=== PATIENT | female | born 1945 | race Caucasian/White ===

== ENCOUNTER 2019-02-17 17:57 | Emergency (ER) | payer MEDICARE ==
[~2019-02-17] VITALS: Ht 162.6 cm; Wt 90.9 kg
[~2019-02-17 17:57] MED LIST: LIDOcaine 1% w/EPI 1:100,000 30ml vial (MDV) ONE; NALT50TA PO; RIVA20TA PO
[2019-02-17 18:12] VITALS: BP 126/78
[2019-02-17] MEDS ORDERED: CEPH500C2 PO (22:05)
[2019-02-17] MEDS ORDERED: SULF1TAB49 PO (22:05)
== END 2019-02-17 22:18 | disposition home or self-care (01) ==
LOC: ER 17:57
DX: N76.4 Abscess of vulva (principal); Z86.718 Personal history of other venous thrombosis and embolism; Z90.710 Acquired absence of both cervix and uterus; Z90.89 Acquired absence of other organs; Z88.5 Allergy status to narcotic agent; Z79.899 Other long term (current) drug therapy
CPT/HCPCS: 56405; 99284; J3490

== ENCOUNTER 2023-03-31 02:23 | Inpatient (IN) | payer MEDICARE ==
[2023-03-31] VITALS (7 sets, daily range): BP systolic 116–168; BP diastolic 51–92; PULSE 60–100; RESP 16–20; TEMP 96.4–97.5; O2SAT 93–97
[~2023-03-31] VITALS: Ht 162.6 cm; Wt 90.9 kg
[~2023-03-31 02:23] MED LIST changes: -LIDOcaine 1% w/EPI 1:100,000 30ml vial (MDV) ONE
[2023-03-31] MEDS ORDERED: LORazepam 2 mg/ml vial IV ONE (03:15)
[2023-03-31] MEDS ORDERED: normal saline 1000ml 1,000 ML IV ONE (03:15)
[2023-03-31 03:19] LABS: HEMOGLOBIN 14.9 g/dl (12.0-16.0); MEAN PLATELET VOLUME 8.5 FL (7.4-10.4); RED CELL DISTRIBUTION WIDTH 12.9 % (11.5-14.5)
[2023-03-31 03:21] LABS: MEAN CORPUSCULAR HEMOGLOBIN 32.9 PG (27.0-31.0); MEAN CORPUSCULAR HGB CONC 33.9 g/dL (33.0-36.5); PLATELET COUNT 173 X10'3 (140-440); RED BLOOD COUNT 4.53 X10'6 (4.20-5.60); WHITE BLOOD COUNT 11.2 X10'3 (4.5-11.0)
[2023-03-31 03:34] LABS: ALANINE AMINOTRANSFERASE 58 U/L (12-78); ALBUMIN 3.4 G/DL (3.4-5.0); ALBUMIN/GLOBULIN RATIO 1.2 (1.1-1.5); ALKALINE PHOSPHATASE 37 IU/L (46-116); ANION GAP 12 (8-16); ASPARTATE AMINO TRANSFERASE 45 U/L (10-37); BILIRUBIN,TOTAL 0.8 MG/DL (0.1-1.0); BLOOD UREA NITROGEN 11 MG/DL (7-18); CALCIUM 9.2 MG/DL (8.5-10.1); CHLORIDE 103 MMOL/L (99-107); CREATININE 0.55 MG/DL (0.40-0.90); GLUCOSE 136 MG/DL (70-104); LIPASE < 50 U/L (73-393); POTASSIUM 3.9 MMOL/L (3.5-5.1); SODIUM 139 MMOL/L (135-145); TOTAL PROTEIN 6.2 G/DL (6.4-8.2); eGFR > 90 ML/MIN
[2023-03-31] MEDS ORDERED: azithromycin 250mg tablet PO ONE (04:25)
[2023-03-31] MEDS ORDERED: normal saline 1000ML IV soln IVB ONE (04:25)
[2023-03-31] MEDS ORDERED: methylPREDNISolone sod succ 125mg/2ml vial IV ONE (04:25)
[2023-03-31 04:26] LABS: TOTAL CELLS COUNTED 100
[2023-03-31 04:27] LABS: PLATELET ESTIMATE NORMAL
[2023-03-31] MEDS ORDERED: albuterol 2.5 MG/3 ML nebule NEB ONE (05:15)
[2023-03-31] MEDS ORDERED: FESO8TAB3 PO (05:43)
[2023-03-31 06:46] LABS: CLARITY,URINE SLIGHTLY CLOUDY (Clear); COLOR,URINE YELLOW (Yellow); GLUCOSE, URINE NEGATIVE (Neg); KETONES,URINE 40 mg/dl (Neg); LEUKOCYTE ESTERASE ,URINE SMALL (Neg); NITRITES, URINE POSITIVE (Neg); OCCULT BLOOD,URINE SMALL (Neg); PH,URINE 5.5 (4.8-8.0); PROTEIN,URINE NEGATIVE (Neg); UROBILINOGEN,URINE 0.2 E.U/dL (0.2-1.0)
[2023-03-31 06:48] LABS: UA COLLECTION TYPE STRAIGHT CATH
[2023-03-31 06:50] LABS: BACTERIA,URINE 4+ /HPF (Neg); MUCUS STRANDS NONE SEEN /LPF (Neg); RBC,URINE 0-2 /HPF (0-2); SQUAMOUS EPITHELIAL CELL,UR FEW /LPF (FEW); WBC CLUMPS,URINE FEW /HPF (NEGATIVE)
--- NOTE | 2023-03-31 08:30 | NUR ---
Patient spoke to her on the phone. Patient was concern if she will do okay when she gets home. Per patient, her wanted her to stay at the hospital. Patient was told that Dr. Colin was going to prescribe her with Paxlovid upon discharge
--- NOTE | 2023-03-31 08:40 | NUR ---
PLACED PT ON 2L NC.
[2023-03-31] MEDS: normal saline 1000ml 1,000 ML IV SCH ×2 (10:15→20:40)
[2023-03-31] MEDS ORDERED: magnesium 4gm in 100ml NS 100 ML IV PRN (10:15)
[2023-03-31] MEDS ORDERED: acetaminophen 325mg tablet PO PRN ×2 (10:15)
[2023-03-31] MEDS ORDERED: magnesium Cl slow-release 64mg tablet PO PRN (10:15)
[2023-03-31] MEDS ORDERED: morphine 2 MG/ML inj. syringe IV PRN ×2 (10:15)
[2023-03-31] MEDS ORDERED: mag hydrox/Alum hydrox/simeth 30ml oral suspension PO PRN (10:15)
[2023-03-31] MEDS ORDERED: magnesium 2GM in 50ml NS 50 ML IV PRN (10:15)
[2023-03-31] MEDS ORDERED: ondansetron/PF 4mg/2ml inj IV PRN (10:15)
[2023-03-31] MEDS ORDERED: potassium Cl 40MEQ/1/2NS 520ml 520 ML IV PRN (10:15)
[2023-03-31] MEDS ORDERED: magnesium hydroxide 30ml (MOM) UD suspension PO PRN (10:15)
[2023-03-31] MEDS ORDERED: potassium Cl 20 mEq SR tablet PO PRN ×2 (10:15)
[2023-03-31] MEDS: CefTRIAXone/D5W-Rocephin 1gm 50 ML IV SCH (12:45)
--- NOTE | 2023-03-31 14:14 | NUR ---
attempted to give report, charge nurse Yanet said they couldnt access the ER physician's note and they need to review it
--- NOTE | 2023-03-31 14:25 | NUR ---
Patient in room ED 5. I have received report from Victoriano and had the opportunity to ask questions and assume patient care.
--- NOTE | 2023-03-31 18:20 | NUR ---
Problems reprioritized. Patient report given, questions answered & plan of care reviewed with
[2023-03-31] MEDS: docusate sod 100mg capsule PO SCH (20:00)
[2023-03-31] MEDS: K and/or MAG REPLACEMENT MC SCH (20:00)
[2023-04-01 02:00] VITALS: BP 127/61; PULSE 67; RESP 18; TEMP 97.7; O2SAT 93
[2023-04-01 06:00] VITALS: BP 137/68; PULSE 66; RESP 16; TEMP 97.4; O2SAT 92
[2023-04-01 06:17] LABS: BASOPHILS % (AUTO) 0.2 % (0-1); EOSINOPHILS % (AUTO) 0 % (0-6); HEMATOCRIT 40.4 % (35.0-45.0); HEMOGLOBIN 13.7 g/dl (12.0-16.0); LYMPHOCYTES # (AUTO) 0.6 X10'3 (1.1-4.8); LYMPHOCYTES % (AUTO) 9.3 % (21-51); MEAN CORPUSCULAR HGB CONC 33.9 g/dL (33.0-36.5); MEAN CORPUSCULAR VOLUME 97.5 FL (78-98); MONOCYTES # (AUTO) 0.4 X10'3 (0-0.9); MONOCYTES % (AUTO) 5.1 % (2-12); NEUTROPHILS % (AUTO) 85.4 % (42-75); PLATELET COUNT 166 X10'3 (140-440); RED BLOOD COUNT 4.14 X10'6 (4.20-5.60); RED CELL DISTRIBUTION WIDTH 12.8 % (11.5-14.5)
[2023-04-01 06:26] LABS: ALBUMIN 2.7 G/DL (3.4-5.0); ANION GAP 9 (8-16); BLOOD UREA NITROGEN 11 MG/DL (7-18); BUN/CREATININE RATIO 27.5 (10.0-20.0); CALCIUM 8.8 MG/DL (8.5-10.1); CHLORIDE 109 MMOL/L (99-107); GLUCOSE 145 MG/DL (70-104); MAGNESIUM 1.9 MG/DL (1.5-2.4); POTASSIUM 3.9 MMOL/L (3.5-5.1); SODIUM 142 MMOL/L (135-145); TOTAL CARBON DIOXIDE 24.2 MMOL/L (24-32); eGFR > 90 ML/MIN
--- NOTE | 2023-04-01 06:39 | NUR ---
Problems reprioritized. Patient report given, questions answered & plan of care reviewed with CAROL ZAYAS.
[2023-04-01] MEDS: CefTRIAXone/D5W-Rocephin 1gm 50 ML IV SCH (07:09)
[2023-04-01 08:00] VITALS: RESP 16; O2SAT 92
[2023-04-01] MEDS: K and/or MAG REPLACEMENT MC SCH (08:00)
[2023-04-01] MEDS: docusate sod 100mg capsule PO SCH (08:00)
[2023-04-01] MEDS ORDERED: enoxaparin 40mg/0.4ml syringe SUBCUT SCH (08:00)
[2023-04-01] MEDS: normal saline 1000ml 1,000 ML IV SCH (08:45)
[2023-04-01 11:00] VITALS: BP 137/58; PULSE 88; RESP 18; TEMP 97.8; O2SAT 95
--- NOTE | 2023-04-01 14:00 | NUR ---
I have reviewed and agree with the interventions, assessments, and documentation by Jennifer Schultz LVN.
[2023-04-01] MEDS ORDERED: RIVA20TA PO (14:12)
--- NOTE | 2023-04-01 15:11 | NUR ---
Patient discharged home with spouse. Discharge information was reviewed with patient and spouse, patient had spouse Jose R to sign the paperwork. Patient and family verbalized understanding. Staff assisted resident to personal vehicle with all belongings.
[2023-04-02] MEDS ORDERED: SULF1TAB49 PO (06:55)
== END 2023-04-01 14:33 | disposition home or self-care (01) | DRG 177 ==
LOC: ER 02:24 → ED HOLD 10:38 → ORTHO 4S 15:29
PROVIDERS: ADMIT Internal Medicine; ATTEND Internal Medicine
DX: U07.1 COVID-19 (principal); J12.82 Pneumonia due to coronavirus disease 2019; N39.0 Urinary tract infection, site not specified; A08.4 Viral intestinal infection, unspecified; G35 Multiple sclerosis; R09.02 Hypoxemia; Z88.5 Allergy status to narcotic agent; Z79.899 Other long term (current) drug therapy; Z86.711 Personal history of pulmonary embolism; Z90.710 Acquired absence of both cervix and uterus; Z82.49 Family history of ischemic heart disease and other diseases of the circulatory system; Z83.6 Family history of other diseases of the respiratory system; Z82.3 Family history of stroke
CPT/HCPCS: 36415; 71045; 80048; 80053; 81001; 83690; 83735; 83880; 85007; 85025; 87077; 87081; 87088; 87186; 87811; 94640; 94760; 99285; A4353; A4615; G0378; J0696; J1650; J2060; J2930; J7030